=== PATIENT | female | born 1955 | race Caucasian/White ===

== ENCOUNTER 2019-05-27 18:11 | Emergency (ER) | payer OTHER, SELFPAY ==
--- NOTE | 2019-05-27 18:13 | ED.GENADULT ---
HPI - General Adult General Chief complaint: Urogenital-Female Stated complaint: UTI symptoms Time Seen by Provider: 05/27/19 18:13 Source: patient Mode of arrival: ambulatory Limitations: no limitations History of Present Illness HPI narrative: 63-year-old female patient presents to the [facility] with complaints of urinary symptoms for the past 5 days. Patient states that she gets these often and recently has been getting one every month. Patient states she has tried increasing her water intake, and using [id number] medications which has not helped. Patient does have a history of diabetes. Patient states her sugars have been running high recently and has been seeing her doctor for this. Related Data Home Medications Medication Instructions Recorded Confirmed gabapentin 05/27/19 hydrochlorothiazide 05/27/19 insulin regular human [Humulin R 05/27/19 Regular U-100 Insuln] metformin mg PO 05/27/19 oxybutynin chloride 05/27/19 pramipexole mg 05/27/19 simvastatin mg 05/27/19 Allergies Allergy/AdvReac Type Severity Reaction Status Date / Time onion Allergy Mild vomiting Verified 02/17/19 15:56 morphine Allergy Unknown Verified 08/27/16 14:03 tetracycline Allergy Unknown Verified 08/27/16 14:05 Contrast Media AdvReac Intermediate N/V Uncoded 02/17/19 15:56 Review of Systems Review of Systems: Narrative: CONSTITUTIONAL: Denies fever, chills, or sweats. EYES: Denies visual changes, redness, or discharge. ENT: Denies rhinorrhea, congestion, sore throat, or otalgia. CARDIOVASCULAR: Denies chest pain, palpitations, or edema. RESPIRATORY: Denies cough or dyspnea. GASTROINTESTINAL: Denies abdominal pain, nausea, vomiting, or diarrhea. GENITOURINARY: Denies dysuria or hematuria. Positive burning with urination, urgency and frequency x5 days. SKIN: Denies rash or itching. MUSCULOSKELETAL: Denies back pain, joint pain, or myalgia. NEUROLOGIC: Denies headache, numbness, or weakness. PSYCHIATRIC: Denies anxiety or depression. ON LICENSE OF [facility] Family History Family History Mother Family history of malignant neoplasm Family history of Alzheimer's disease Family history of osteoporosis Cerebrovascular accident Family history of arthritis Family history of diabetes mellitus in first degree relative Sibling Family history of obesity Family history of diabetes mellitus in first degree relative Father Depression Family history of hepatitis Family history of atrial fibrillation Family history of heart disease in male family member before age 55 Family history of hearing loss Other Family history of type 2 diabetes mellitus Hypertension Social History Social History Smoking status: Never smoker Alcohol intake: never Comments At the time of my signature I agree with nursing past medical history, surgical, social, and family history. There is no relevant family history pertinent to the presenting complaint. Exam Narrative: Exam Narrative: GENERAL: Well-appearing, well-nourished, and in no acute distress. HEAD: Normocephalic, atraumatic. EYES: PERRLA and EOMI. ENT: Nares clear, no rhinorrhea or epistaxis. Mucous membranes moist. NECK: Supple. No lymphadenopathy CHEST: Clear to auscultation. No respiratory distress. HEART: Regular rate and rhythm. No murmur heard. Normal peripheral pulses. ABDOMEN: Soft, nontender, nondistended, normal active bowel sounds. No CVA tenderness on percussion. EXTREMITIES: Normal range of motion. No edema. SKIN: Warm, dry, no rash. NEURO: No focal deficits. Alert and oriented x3. Course Vital Signs Vital signs: Vital Signs Temperature 36.4 C 05/27/19 18:19 Pulse Rate 77 05/27/19 18:19 Respiratory Rate 20 05/27/19 18:19 Blood Pressure 130/57 L 05/27/19 18:19 Pulse Oximetry 100 05/27/19 18:19 Temperature 36.4 C 05/27/19 18:19 Pulse
[2019-05-27 18:19] VITALS: BP 130/57; PULSE 77; RESP 20; TEMP 36.4; O2SAT 100
== END 2019-05-27 18:55 | disposition home or self-care (01) ==
PROVIDERS: Emergency Provider Nurse Practitioner Family; PCP Physician Assistant
DX: N30.01 Acute cystitis with hematuria (principal)
CPT/HCPCS: 81003; 87077; 87086; 87088; 87186; 99213; G0463

== ENCOUNTER 2019-06-14 17:56 | Emergency (ER) | payer OTHER, SELFPAY ==
[2019-06-14 18:05] VITALS: BP 149/65; PULSE 80; RESP 18; TEMP 37.2; O2SAT 99
--- NOTE | 2019-06-14 18:30 | ED.GENADULT ---
HPI - General Adult General Chief complaint: Upper Respiratory Infection Stated complaint: fever/cough Time Seen by Provider: 06/14/19 18:30 Source: patient, family and RN notes reviewed Mode of arrival: ambulatory Limitations: no limitations History of Present Illness HPI narrative: This is a 63 years old female presented office for evaluation of cough and congestion since last night. Associated with hoarseness, sore throat, and feeling achy. Denies sick contact. She does not smoke. She did receive influenza vaccine for the season. Related Data Home Medications Medication Instructions Recorded Confirmed gabapentin 300 mg BID 05/27/19 06/14/19 hydrochlorothiazide 25 mg DAILY 05/27/19 06/14/19 insulin regular human [Humulin R 35 sliding scale dose TID 05/27/19 06/14/19 Regular U-100 Insuln] metformin 500 mg PO DAILY 05/27/19 06/14/19 oxybutynin chloride 5 mg DAILY 05/27/19 06/14/19 pramipexole 1 mg DAILY 05/27/19 06/14/19 simvastatin 40 mg DAILY 05/27/19 06/14/19 Allergies Allergy/AdvReac Type Severity Reaction Status Date / Time onion Allergy Mild vomiting Verified 05/29/19 13:27 morphine Allergy Unknown Verified 05/29/19 13:27 tetracycline Allergy Unknown Verified 05/29/19 13:27 Contrast Media AdvReac Intermediate N/V Uncoded 05/29/19 13:27 Review of Systems Review of Systems: Narrative: CONSTITUTIONAL: Denies fever ENT: Denies congestion/drainage, sore throat. Denies otalgia. CARDIOVASCULAR: Denies chest pain RESPIRATORY: Denies dyspnea, wheezing. Reports cough GASTROINTESTINAL: Denies abdominal pain, nausea, vomiting, diarrhea. SKIN: Denies rash MUSCULOSKELETAL: Denies acute back pain NEUROLOGIC: Denies lightheaded PMFSH Past Medical History Medical History (Updated 06/14/19 @ 19:12 by BALWINDER Hussein) Essential (primary) hypertension Gallstones Mixed hyperlipidemia Mouth sores Restless leg syndrome Type 2 diabetes mellitus with hyperglycemia Uncontrolled type 2 diabetes mellitus with complication, without long-term current use of insulin Family History Family History Mother Family history of malignant neoplasm Family history of Alzheimer's disease Family history of osteoporosis Cerebrovascular accident Family history of arthritis Family history of diabetes mellitus in first degree relative Sibling Family history of obesity Family history of diabetes mellitus in first degree relative Father Depression Family history of hepatitis Family history of atrial fibrillation Family history of heart disease in male family member before age 55 Family history of hearing loss Other Family history of type 2 diabetes mellitus Hypertension Social History Social History Smoking status: Never smoker Alcohol intake: never Gender identity (if verbalized by the patient): Female Comments At time of signature, I agree with nursing past medical, surgical, social and family history. There is no relevant family history pertinent to the presenting complaint. Exam Narrative: Exam Narrative: GENERAL: This is a well-nourished, well-developed patient, in no apparent distress. EYES: Sclera clear/white. Vision is grossly intact. EARS: External ears normal, auditory canals clear and without drainage, TMs normal without perforation. Hearing grossly intact. NOSE: External nose normal with no obvious nasal discharge, nares without redness, no rhinorrhea. THROAT: Mucous membranes moist, posterior pharynx pink with drainage NECK: Neck supple, non-tender without lymphadenopathy, masses or thyromegaly. CARDIOVASCULAR: Regular rate and rhythm without murmurs, gallops, or rubs. RESPIRATORY: Clear to auscultation. Breath sounds equal bilaterally. No wheezes, rales, or rhonchi. GASTROINTESTINAL: Abdomen soft, non-tender, nondistended. Bowel sounds are active. No guarding. SKIN: warm, int
== END 2019-06-14 18:40 | disposition home or self-care (01) ==
PROVIDERS: Emergency Provider Nurse Practitioner; PCP Physician Assistant
DX: J06.9 Acute upper respiratory infection, unspecified (principal); I10 Essential (primary) hypertension; E78.2 Mixed hyperlipidemia; G25.81 Restless legs syndrome; E11.9 Type 2 diabetes mellitus without complications
CPT/HCPCS: 87081; 87804; 87880; 99213; G0463